=== PATIENT | male | born 1990 ===

== ENCOUNTER 2019-01-26 08:36 | Emergency (ER) | payer SELFPAY ==
[~2019-01-26 08:36] MED LIST: ASPI-1471 PO; DIPH-741 PO; METH4TAB66 PO
--- NOTE | 2019-01-26 08:37 | ER Report ---
History and Physical Time Seen By MD: 08:37 HPI/ROS CHIEF COMPLAINT: Suprapubic abdominal pain HISTORY OF PRESENT ILLNESS: Patient is a 28-year-old male here with complaints of suprapubic abdominal pain with worsening pain with urination which started approximately 3 days ago. Patient complains of radiation to the left flank currently but has been afebrile. Patient reports having a prior history of an appendectomy in 2010, tuberculosis which was treated approximately 3 years ago. Patient is hemodynamically stable at time of evaluation, nontoxic in appearance with no rebound or guarding on abdominal exam. Patient has been tolerating oral intake without issues. REVIEW OF SYSTEMS: Constitutional: No fever, no chills. Eyes: No discharge. ENT: No sore throat. Cardiovascular: No chest pain, no palpitations. Respiratory: No cough, no shortness of breath. Gastrointestinal: + Suprapubic abdominal pain, no vomiting or significant nausea. Genitourinary: No hematuria, + burning with urination Musculoskeletal: + Left flank pain Skin: No rashes. Neurological: No headache. Allergies: Coded Allergies: No Known Drug Allergies (Unverified , 01/26/19) Home Meds Active Scripts Tramadol Hcl (TRAMADOL HCL) 50 Mg Tablet, 50 MG PO Q6H PRN for PAIN, #12 TAB 0 Refills Prov:JUANA GAYTAN DO 01/26/19 Methylprednisolone (METHYLPREDNISOLONE) 4 Mg Tab.ds.pk, 4 MG PO DIRECTED, #1 PACK 0 Refills Prov:DAWNA CABRERA MD 09/21/17 Reported Medications Aspirin (ASPIR 81) 81 Mg Tablet.dr, 81 MG PO QDAY, TAB 09/21/17 Diphenhydramine Hcl (BENADRYL ALLERGY) 25 Mg Tablet, 25 MG PO Q6-8H, TAB 09/21/17 Constitutional Vital Sign - Last 24 Hours 01/26/19 01/26/19 01/26/19 01/26/19 08:42 08:50 09:03 09:06 Pulse 72 89 Resp 12 B/P (MAP) 138/80 (99) 138/80 118/75 (89) Pulse Ox 92 91 O2 Delivery Room Air 01/26/19 01/26/19 01/26/19 01/26/19 09:30 09:36 09:41 10:04 Pulse 79 74 B/P (MAP) 113/77 (89) 110/66 (81) Pulse Ox 90 90 01/26/19 01/26/19 01/26/19 01/26/19 10:11 10:30 10:41 11:00 Pulse 68 57 B/P (MAP) 110/72 (85) 119/69 (86) Pulse Ox 91 92 Physical Exam General Appearance: The patient is alert, has no immediate need for airway protection and no signs of toxicity. Nontoxic in appearance Eyes: Pupils equal and round no pallor or injection. ENT, Mouth: Mucous membranes are moist. Respiratory: There are no retractions, lungs are clear to auscultation. Cardiovascular: Regular rate and rhythm. Gastrointestinal: Abdomen is soft and + suprapubic tenderness, no masses, bowel sounds normal. Neurological: No focal neurological findings on exam Skin: Warm and dry, no rashes. Musculoskeletal: Neck is supple non tender. Extremities are nontender, nonswollen and have full range of motion. DIFFERENTIAL DIAGNOSIS: After history and physical exam differential diagnosis was considered for abdominal pain including but not limited to appendicitis, cholecystitis, gastritis and urinary tract infection. Medical Decision Making Data Points Result Diagram: 01/26/19 0903 01/26/19 0903 Laboratory Hematology Test 01/26/19 08:52 01/26/19 09:03 Urine Color Yellow Urine Clarity Clear Urine pH 5.0 pH (4.8-9.5) Urine Specific [place] 1.024 Urine Protein Negative mg/dL (NEGATIVE) Urine Glucose (UA) Negative mg/dL (NEGATIVE) Urine Ketones Negative mg/dL (NEGATIVE) Urine Blood Negative (NEGATIVE) Urine Nitrite Negative (NEGATIVE) Urine Bilirubin Negative (NEGATIVE) Urine Urobilinogen Negative mg/dL (0.2-1.9) Urine Leukocyte Esterase Negative (NEGATIVE) Urine RBC None /HPF (0-2/HPF) Urine WBC 1 /HPF (0-5/HPF) Urine Squamous Epithelial Cells Few /LPF (</=FEW) Urine Bacteria Negative /HPF (NONE-FEW) Urine Mucus None /HPF (NONE-FEW) Red Blood Count 5.52 M/uL (4.00-5.60) Mean Corpuscular Volume 85.9 fL (80.0-96.0) Mean Corpuscular Hemoglobin 29.0 pg (26.0-33.0) Mean Corpuscular Hemoglobin Concent 33.8 g/dL (32.0-36.0) Red Cell Distribution Width 13.1 % (11.5-14.5) Mean Platelet Volume 7.2 fL (7.2-11.1) Neutrophils (%) (Auto) 64.9 % (39.4-72.5) Lymphocytes (%) (Auto) 26.5 % (17.6-49.6) Monocytes (%) (Auto) 4.8 % (4.1-12.4) Eosinophils (%) (Auto) 3.2 % (0.4-6.7) Basophils (%) (Auto) 0.6 % (0.3-1.4) Nucleated RBC Relative Count (auto) 0.0 /100WBC Neutrophils # (Auto) 5.0 K/uL (2.0-7.4) Lymphocytes # (Auto) 2.0 K/uL (1.3-3.6) Monocytes # (Auto) 0.4 K/uL (0.3-1.0) Eosinophils # (Auto) 0.2 K/uL (0.0-0.5) Basophils # (Auto) 0.0 K/uL (0.0-0.1) Nucleated RBC Absolute Count (auto) 0.00 K/uL Sodium Level 142 mmol/L (137-145) Potassium Level 3.9 mmol/L (3.5-5.0) Chloride Level 110 mmol/L (98-107) Carbon Dioxide Level 23 mmol/L (22-30) Blood Urea Nitrogen 19 mg/dl (9-21) Creatinine 0.90 mg/dl (0.66-1.25) Glomerular Filtration Rate Calc > 60.0 Random Glucose 115 mg/dl (75-110) Calcium Level 9.0 mg/dl (8.4-10.2) Total Bilirubin 0.4 mg/dl (0.2-1.3) Aspartate Amino Transf (AST/SGOT) 23 U/L (0-35) Alanine Aminotransferase (ALT/SGPT) 24 U/L (0-56) Alkaline Phosphatase 109 U/L (0-126) Total Protein 7.5 g/dl (6.3-8.2) Albumin 4.3 g/dl (3.5-5.0) Lipase 87 U/L (23-300) Chemistry Test 01/26/19 08:52 01/26/19 09:03 Urine Color Yellow Urine Clarity Clear Urine pH 5.0 pH (4.8-9.5) Urine Specific [place] 1.024 Urine Protein Negative mg/dL (NEGATIVE) Urine Glucose (UA) Negative mg/dL (NEGATIVE) Urine Ketones Negative mg/dL (NEGATIVE) Urine Blood Negative (NEGATIVE) Urine Nitrite Negative (NEGATIVE) Urine Bilirubin Negative (NEGATIVE) Urine Urobilinogen Negative mg/dL (0.2-1.9) Urine Leukocyte Esterase Negative (NEGATIVE) Urine RBC None /HPF (0-2/HPF) Urine WBC 1 /HPF (0-5/HPF) Urine Squamous Epithelial Cells Few /LPF (</=FEW) Urine Bacteria Negative /HPF (NONE-FEW) Urine Mucus None /HPF (NONE-FEW) White Blood Count 7.7 k/uL (4.5-11.0) Red Blood Count 5.52 M/uL (4.00-5.60) Hemoglobin 16.0 g/dL (14.0-18.0) Hematocrit 47.4 % (42.0-52.0) Mean Corpuscular Volume 85.9 fL (80.0-96.0) Mean Corpuscular Hemoglobin 29.0 pg (26.0-33.0) Mean Corpuscular Hemoglobin Concent 33.8 g/dL (32.0-36.0) Red Cell Distribution Width 13.1 % (11.5-14.5) Platelet Count 255 K/uL (150-450) Mean Platelet Volume 7.2 fL (7.2-11.1) Neutrophils (%) (Auto) 64.9 % (39.4-72.5) Lymphocytes (%) (Auto) 26.5 % (17.6-49.6) Monocytes (%) (Auto) 4.8 % (4.1-12.4) Eosinophils (%) (Auto) 3.2 % (0.4-6.7) Basophils (%) (Auto) 0.6 % (0.3-1.4) Nucleated RBC Relative Count (auto) 0.0 /100WBC Neutrophils # (Auto) 5.0 K/uL (2.0-7.4) Lymphocytes # (Auto) 2.0 K/uL (1.3-3.6) Monocytes # (Auto) 0.4 K/uL (0.3-1.0) Eosinophils # (Auto) 0.2 K/uL (0.0-0.5) Basophils # (Auto) 0.0 K/uL (0.0-0.1) Nucleated RBC Absolute Count (auto) 0.00 K/uL Glomerular Filtration Rate Calc > 60.0 Calcium Level 9.0 mg/dl (8.4-10.2) Total Bilirubin 0.4 mg/dl (0.2-1.3) Aspartate Amino Transf (AST/SGOT) 23 U/L (0-35) Alanine Aminotransferase (ALT/SGPT) 24 U/L (0-56) Alkaline Phosphatase 109 U/L (0-126) Total Protein 7.5 g/dl (6.3-8.2) Albumin 4.3 g/dl (3.5-5.0) Lipase 87 U/L (23-300) Urinalysis Test 01/26/19 08:52 Urine Color Yellow Urine Clarity Clear Urine pH 5.0 pH (4.8-9.5) Urine Specific [place] 1.024 Urine Protein Negative mg/dL (NEGATIVE) Urine Glucose (UA) Negative mg/dL (NEGATIVE) Urine Ketones Negative mg/dL (NEGATIVE) Urine Blood Negative (NEGATIVE) Urine Nitrite Negative (NEGATIVE) Urine Bilirubin Negative (NEGATIVE) Urine Urobilinogen Negative mg/dL (0.2-1.9) Urine Leukocyte Esterase Negative (NEGATIVE) Urine RBC None /HPF (0-2/HPF) Urine WBC 1 /HPF (0-5/HPF) Urine Squamous Epithelial Cells Few /LPF (</=FEW) Urine Bacteria Negative /HPF (NONE-FEW) Urine Mucus None /HPF (NONE-FEW) EKG/Imaging Imaging PATIENT NAME: Itz Burnett : 1990 MR: [id number] V: [id number] EXAM DATE: ORDERING PHYSICIAN: JUANA GAYTAN TECHNOLOGIST: Location: [facility] Patient: Itz Burnett : 1990 Visit/Account:[id number] Date of Sevice: 01/26/2019 EXAMINATION: CT abdomen with IV contrast CT pelvis with IV contrast HISTORY: Abdominal pain. TECHNIQUE: Spiral scan was through the abdomen and pelvis during injection of nonionic iodinated intravenous contrast. Sagittal and coronal reformatted images are also submitted. One of the following dose optimization techniques was utilized in the performance of this exam: Automated exposure control; adjustment of the mA and/or kV according to the patient's size; or use of an iterative reconstruction technique. Specific details can be referenced in the facility's radiology CT exam operational policy. CONTRAST: 75 mL of IV Isovue-370 COMPARISON: None available. FINDINGS: Lower chest: 1.3 cm cyst in the right lower lobe. Liver / biliary: Negative. Pancreas: Negative. Spleen: Small splenule anterior to the spleen. Adrenal glands: Negative. Kidneys: Negative. Pelvic structures: Negative. Bowel: Ovoid fat stranding adjacent to the sigmoid colon consistent with acute epiploic appendagitis. The appendix is absent. Small bowel loops are unremarkable. Peritoneum / retroperitoneum / mesenteries: No free fluid or free air. Vessels: Negative. Lymph nodes: Negative. Musculoskeletal / Body wall: Bilateral L5 pars defects. 5 mm of retrolisthesis of L4 over L5. 3 mm of anterior listhesis of L5 over S1. IMPRESSION: 1. Acute epiploic appendagitis adjacent to the sigmoid colon. 2. Bilateral L5 pars defects. 5 mm of retrolisthesis of L4 over L5. 3 mm of anterior listhesis of L5 over S1. ED Course/Re-evaluation ED Course Patient is a 28-year-old male [place] speaking only here with complaints of suprapubic abdominal pain, burning with urination with some radiation to the left flank. Patient has been tolerating oral intake and reportedly ate 1 hour prior to arrival. Patient reports having a prior history of an appendectomy, tuberculosis which was treated. Patient denies other medical problems at this time. Patient reports having symptoms for approximately 3 days. Labs are unremarkable with no leukocytosis. Urinalysis showed no signs of infectious etiology. CT imaging identified epiploic appendicitis. 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 Patient voiced understanding of these findings. Patient was given prescription for tramadol and recommended close PCP follow-up. Return precautions were provided. Patient was hemodynamically stable at time of discharge and in no acute distress Decision to Disposition Date: Jan 26, 2019 Decision to Disposition Time: 11:29 Depart Departure Latest Vital Signs Vital Signs Date Time Temp Pulse Resp B/P (MAP) Pulse Ox O2 Delivery O2 Flow Rate FiO2 01/26/19 11:00 119/69 (86) 01/26/19 10:41 57 92 01/26/19 08:50 12 Room Air Impression: Primary Impression: Epiploic appendagitis Condition: Improved Disposition: HOME OR SELF-CARE New Scripts Tramadol Hcl (TRAMADOL HCL) 50 Mg Tablet 50 MG PO Q6H PRN for PAIN, #12 TAB 0 Refills Prov: JUANA GAYTAN DO 01/26/19 Patient Instructions: Abdominal Pain (ED) Additional Instructions: You were diagnosed with epiploic appendigitis. Please follow-up with your family doctor in the next 24-48 hours. You may take 1 tablet of tramadol every 6-8 hours as needed for breakthrough pain. You may take Tylenol, ibuprofen or naproxen as needed for primary pain control. Please return with fevers, worsening abdominal pain, inability to keep down food or fluids. JUANA GAYTAN DO Jan 26, 2019 08:37
[2019-01-26 09:12] LABS: PLATELET COUNT, AUTOMATED 255 K/uL (150-450)
[2019-01-26] MEDS ORDERED: IOPAMIDOL 76% 150 ML INFUS BTL 150 ML ONE (09:45)
--- NOTE | 2019-01-26 10:35 | RADIOLOGY IMAGING REPORT ---
FACILITY: [facility] [place] PATIENT NAME: Itz Burnett : 1990 MR: [id number] V: [id number] EXAM DATE: ORDERING PHYSICIAN: JUANA GAYTAN TECHNOLOGIST: Location: Patient: Itz Burnett : 1990 Visit/Account:[id number] Date of Sevice: 01/26/2019 EXAMINATION: CT abdomen with IV contrast CT pelvis with IV contrast HISTORY: Abdominal pain. TECHNIQUE: Spiral scan was through the abdomen and pelvis during injection of nonionic iodinated in travenous contrast. Sagittal and coronal reformatted images are also submitted. One of the following dose optimization techniques was utilized in the performance of this exam: Autom ated exposure control; adjustment of the mA and/or kV according to the patient's size; or use of an i terative reconstruction technique. Specific details can be referenced in the facility's radiology C T exam operational policy. CONTRAST: 75 mL of IV Isovue-370 COMPARISON: None available. FINDINGS: Lower chest: 1.3 cm cyst in the right lower lobe. Liver / biliary: Negative. Pancreas: Negative. Spleen: Small splenule anterior to the spleen. Adrenal glands: Negative. Kidneys: Negative. Pelvic structures: Negative. Bowel: Ovoid fat stranding adjacent to the sigmoid colon consistent with acute epiploic appendagitis. The appendix is absent. Small bowel loops are unremarkable. Peritoneum / retroperitoneum / mesenteries: No free fluid or free air. Vessels: Negative. Lymph nodes: Negative. Musculoskeletal / Body wall: Bilateral L5 pars defects. 5 mm of retrolisthesis of L4 over L5. 3 mm of anterior listhesis of L5 over S1. IMPRESSION: 1. Acute epiploic appendagitis adjacent to the sigmoid colon. 2. Bilateral L5 pars defects. 5 mm of retrolisthesis of L4 over L5. 3 mm of anterior listhesis of L5 over S1. Report Dictated By: Shane George MD at 01/26/2019 10:18 AM Report E-Signed By: Shane George MD at 01/26/2019 10:31 AM WSN:[id number]
[2019-01-26 11:00] VITALS: BP 119/69
[2019-01-26] MEDS ORDERED: TRAM-420 PO (11:33)
== END 2019-01-26 11:48 | disposition home or self-care (01) ==
LOC: ER 08:50
DX: K63.89 Other specified diseases of intestine (principal)
CPT/HCPCS: 74177; 81001; 83690; 85025; 99284; Q9967; 82040; 82247; 82310; 82374; 82435; 82565; 82947; 84075; 84132; 84155; 84295; 84450; 84460; 84520